=== PATIENT | male | born 1975 | race Caucasian/White ===

== ENCOUNTER 2018-04-19 11:27 | Emergency (ER) | payer OTHER ==
[2018-04-19 11:40] VITALS: RESP 18
[2018-04-19] MEDS ORDERED: LIDOCAINE 1% INJ 10MG/ML (20 ML MDV) SQ STA (12:52)
--- NOTE | 2018-04-19 12:56 | ED ---
Skin/Abscess/FB HPI - General Chief complaint: Skin/Abscess/Foreign Body Stated complaint: abcess on bottom Time Seen by Provider: 04/19/18 12:40 Source: patient, RN notes reviewed, old records reviewed Mode of arrival: ambulatory Limitations: no limitations - History of Present Illness Initial comments: Patient is a 43-year-old male with chief complaint of increased pain and swelling over the right buttocks. Patient reports that he had a small pimple and he is unnecessary for many years. He reports over the past 2 weeks since increase in size. Patient reports that he's had no history of MRSA or skin infection. Patient has no fevers or chills. He reports that occasionally painful to sit down. Patient states that he has had normal bowel movements and normal urination. Patient denies any recent fever, chills, shortness of breath, chest pain, back pain, abdominal pain, nausea vomiting, numbness or tingling, dysuria or hematuria, constipation or diarrhea, headaches or visual changes, or any other current symptoms - Related Data Home Medications Medication Instructions Recorded Confirmed Albuterol Inhaler [Ventolin Hfa 1 - 2 puff INHALATION RT-Q6H PRN 04/19/18 Inhaler] Loratadine-Pseudoeph 5-120 mg 1 each PO DAILY PRN 04/19/18 04/19/18 [Claritin-D 12 HR] Previous Rx's Medication Instructions Recorded Ibuprofen 600 mg PO TID #20 tablet 04/19/18 Sulfamethox-Tmp 800-160Mg [Bactrim 2 tab PO Q12HR #40 tab 04/19/18 DS 800-160 mg] Allergies Allergy/AdvReac Type Severity Reaction Status Date / Time divalproex sodium Allergy Unknown Verified 04/19/18 11:40 [From Depakote] imipramine Allergy Unknown Verified 04/19/18 11:40 lamotrigine [From Lamictal] Allergy Unknown Verified 04/19/18 11:40 peanut Allergy Unknown Verified 04/19/18 11:40 Review of Systems ROS Statement: Those systems with pertinent positive or pertinent negative responses have been documented in the HPI. ROS Other: All systems not noted in ROS Statement are negative. Past Medical History Additional Past Medical History / Comment(s): chronic back pain, rt shoulder pain History of Any Multi-Drug Resistant Organisms: None Reported Past Surgical History: Appendectomy Additional Past Surgical History / Comment(s): back surgery Past Psychological History: ADD/ADHD, Bipolar, Schizophrenia Smoking Status: Current every day smoker Past Alcohol Use History: Rare Past Drug Use History: Marijuana General Exam - General Exam Comments Initial Comments: This patient's a 43-year-old male. Alert and oriented. No acute distress. Limitations: no limitations General appearance: alert, in no apparent distress Head exam: Present: atraumatic, normocephalic, normal inspection Eye exam: Present: normal appearance, PERRL, EOMI. Absent: scleral icterus, conjunctival injection, periorbital swelling ENT exam: Present: normal exam, mucous membranes moist Neck exam: Present: normal inspection. Absent: tenderness, meningismus, lymphadenopathy Respiratory exam: Present: normal lung sounds bilaterally. Absent: respiratory distress, wheezes, rales, rhonchi, stridor Cardiovascular Exam: Present: regular rate, normal rhythm, normal heart sounds. Absent: systolic murmur, diastolic murmur, rubs, gallop, clicks GI/Abdominal exam: Present: soft, normal bowel sounds. Absent: distended, tenderness, guarding, rebound, rigid Rectal exam: Present: normal inspection, normal rectal tone Extremities exam: Present: normal inspection, full ROM, normal capillary refill. Absent: tenderness, pedal edema, joint swelling, calf tenderness Back exam: Present: normal inspection Neurological exam: Present: alert, oriented X3, CN II-XII intact, normal gait Psychiatric exam: Present: normal affect, normal mood Skin exam: Present: warm, dry, intact, normal color, erythema (4cm area of erythema over rght buttock). Absent: rash Course Vital Signs 04/19/18 11:36 Temperature 97.9 F Pulse Rate 73 Respiratory 18 Rate Blood Pressure 133/91 O2 Sat by Pulse 98 Oximetry Procedures - Incision & Drainage Time Out Performed?: Yes Site: buttock (Right) Size (cm): 6 Anesthetic Used: lidocaine 1% Amount (mLs): 5 I&D Cleaning Method: Iodine Sterile Field Used?: Yes Scalpel Used: #11 I&D Drainage Obtained: Pus, Blood Packing: Iodoform Culture Obtained?: Yes Patient Tolerated Procedure: well, no complications Medical Decision Making - Medical Decision Making 43-year-old male presents return today chief complaint of an abscess over his right buttock. Worse over the past 2 weeks. No fevers or chills. Abscess was not near the rectum. Ultrasound was performed and shows a 6 cm fluctuant nonvascular area. I did incise and drain the abscess at this time. Culture obtained. Majority of the material expressed was pustular as well as some blood. Packing was placed in the area. I discussed he has a follow-up with PCP for repacking in 2 days. We'll start the Patient on Bactrim. Patient given starter pack in the emergency department. - Radiology Data Radiology results: report reviewed Disposition Clinical Impression: Abscess of buttock, right Disposition: HOME SELF-CARE Condition: Good Instructions: Abscess Incision and Drainage (ED) Additional Instructions: Follow-up with primary care physician for packing removal in 2 days. Patient should complete the antibiotic prescription. Return to the emergency department if any alarming signs or symptoms occur. Prescriptions: Ibuprofen 600 mg PO TID #20 tablet Sulfamethox-Tmp 800-160Mg [Bactrim DS 800-160 mg] 2 tab PO Q12HR #40 tab Is patient prescribed a controlled substance at d/c from ED?: No Referrals: Karli Nielsen MD [Primary Care Provider] - 1-2 days Time of Disposition: 13:42
[2018-04-19] MEDS ORDERED: SULFAMETH-TMP DS STARTER PACK 2 TAB BTL PO STA (13:44)
[2018-04-19 13:54] VITALS: BP 143/97; PULSE 68; TEMP 98.6
== END 2018-04-19 13:54 | disposition home or self-care (01) ==
LOC: EC 11:27
DX: L02.31 Cutaneous abscess of buttock (principal); F17.200 Nicotine dependence, unspecified, uncomplicated; Z88.8 Allergy status to other drugs, medicaments and biological substances; Z91.010 Allergy to peanuts
CPT/HCPCS: 87070; 87205; 99284; 10061; J2001

== ENCOUNTER 2018-04-22 11:03 | Emergency (ER) | payer OTHER ==
[2018-04-22 11:10] VITALS: TEMP 97.4
--- NOTE | 2018-04-22 12:17 | ED ---
Skin/Abscess/FB HPI - General Chief complaint: Skin/Abscess/Foreign Body Stated complaint: PACKING REMOVAL RT BUTTOCKS Time Seen by Provider: 04/22/18 11:35 Source: patient Mode of arrival: ambulatory Limitations: no limitations - History of Present Illness Initial comments: 33 years old male comes in here for follow-up on his home wound on his right buttocks, he had I&D few days ago he had the wound packed and he is here for the removal of the package and is also has some purulent drainage from there he denies any fever no chills review of system is unremarkable otherwise. He is on Bactrim right now twice today and he has about a days worth the supply at this point - Related Data Home Medications Medication Instructions Recorded Confirmed Albuterol Inhaler [Ventolin Hfa 1 - 2 puff INHALATION RT-Q6H PRN 04/19/18 Inhaler] Loratadine-Pseudoeph 5-120 mg 1 tab PO DAILY PRN 04/19/18 04/22/18 [Claritin-D 12 HR] Previous Rx's Medication Instructions Recorded Ibuprofen 600 mg PO TID #20 tablet 04/19/18 Sulfamethox-Tmp 800-160Mg [Bactrim 2 tab PO Q12HR #40 tab 04/19/18 DS 800-160 mg] Allergies Allergy/AdvReac Type Severity Reaction Status Date / Time divalproex sodium Allergy Unknown Verified 04/22/18 11:41 [From Depakote] imipramine Allergy Unknown Verified 04/22/18 11:41 lamotrigine [From Lamictal] Allergy Unknown Verified 04/22/18 11:41 peanut Allergy Unknown Verified 04/22/18 11:41 OPIATES AdvReac Nausea & Uncoded 04/22/18 11:41 Vomiting Review of Systems ROS Statement: Those systems with pertinent positive or pertinent negative responses have been documented in the HPI. ROS Other: All systems not noted in ROS Statement are negative. Past Medical History Additional Past Medical History / Comment(s): chronic back pain, rt shoulder pain History of Any Multi-Drug Resistant Organisms: None Reported Past Surgical History: Appendectomy Additional Past Surgical History / Comment(s): back surgery Past Psychological History: ADD/ADHD, Bipolar, Schizophrenia Smoking Status: Current every day smoker Past Alcohol Use History: Rare Past Drug Use History: Marijuana General Exam - General Exam Comments Initial Comments: General: The patient is awake and alert, in no distress, and does not appear acutely ill. Skin: Skin is warm and dry and no rashes or lesions are noted. Noticed a wound which is packed on the right buttocks opening is about to 4 mm in size packing was pulled out wound was cleaned noticed a small amount of firm prostate that was cultured him area noticed some induration underneath that I no obvious cellulitis noticed affecting the surrounding area Eye: Pupils are equal, round and reactive to light, extra-ocular movements are intact; there is normal conjunctiva bilaterally. Ears, nose, mouth and throat: There are moist mucous membranes and no oral lesions. Neck: The neck is supple, there is no tenderness or JVD. Cardiovascular: There is a regular rate and rhythm. No murmur, rub or gallop is appreciated. Respiratory: To auscultation bilateral, no wheezing no rhonchi no distress respiratory wagner noticed Gastrointestinal: Soft, non-distended, non-tender abdomen without masses or organomegaly noted. There is no rebound or guarding present. Bowel sounds are unremarkable. Back: There is no tenderness to palpation in the midline. There is no obvious deformity. Musculoskeletal: Normal ROM, no tenderness, There is no pedal edema. There is no calf tenderness or swelling. No cords were appreciated. Neurological: CN II-XII intact, Cranial nerves III through XII are intact. There are no obvious motor or sensory deficits. Coordination appears grossly intact. Speech is normal. Psychiatric: Cooperative, appropriate mood & affect, normal judgment. Limitations: no limitations Course Vital Signs 04/22/18 11:06 Temperature 97.4 F L Pulse Rate 69 Respiratory 18 Rate Blood Pressure 137/84 O2 Sat by Pulse 96 Oximetry Centering the small amount of drainage and I repeated the culture with aerobic and anaerobic noticed mild odor to the drainage or discharge the patient will continue the Bactrim until the culture reports come back Disposition Clinical Impression: Abscess Disposition: HOME SELF-CARE Condition: Good Instructions: Abscess (ED) Is patient prescribed a controlled substance at d/c from ED?: No Referrals: Karli Nielsen MD [Primary Care Provider] - 1-2 days
[2018-04-22 12:34] VITALS: BP 130/80; PULSE 72; RESP 16
== END 2018-04-22 12:34 | disposition home or self-care (01) ==
LOC: EC 11:03
DX: L02.31 Cutaneous abscess of buttock (principal); F17.200 Nicotine dependence, unspecified, uncomplicated; Z91.010 Allergy to peanuts; Z88.8 Allergy status to other drugs, medicaments and biological substances; Z88.5 Allergy status to narcotic agent
CPT/HCPCS: 87070; 87075; 87205; 99283

== ENCOUNTER 2018-12-08 18:48 | Emergency (ER) | payer OTHER ==
[2018-12-08 19:25] VITALS: RESP 18; TEMP 98.5
[2018-12-08 21:19] VITALS: BP 164/90; PULSE 84
--- NOTE | 2018-12-08 21:22 | ED ---
General Adult HPI - General Chief complaint: Extremity Injury, Lower Stated complaint: Leg pain Time Seen by Provider: 12/08/18 20:06 Source: patient, RN notes reviewed Mode of arrival: wheelchair Limitations: no limitations - History of Present Illness Initial comments: 43-year-old male presents to the emergency department for chief complete of right calf pain. This has been ongoing for the past several hours. Patient states that he was starting to run across the street when he felt a pop in his right calf. He states that since that time he has had pain especially with dorsiflexion of the right foot. Denies any falls or other injuries.Patient has no other complaints at this time including shortness of breath, chest pain, abdominal pain, nausea or vomiting, headache, or visual changes. - Related Data Home Medications Medication Instructions Recorded Confirmed Albuterol Inhaler [Ventolin Hfa 1 - 2 puff INHALATION RT-Q6H PRN 04/19/18 04/22/18 Inhaler] Loratadine-Pseudoeph 5-120 mg 1 tab PO DAILY PRN 04/19/18 04/22/18 [Claritin-D 12 HR] Previous Rx's Medication Instructions Recorded Ibuprofen 600 mg PO TID #20 tablet 04/19/18 Sulfamethox-Tmp 800-160Mg [Bactrim 2 tab PO Q12HR #40 tab 04/19/18 DS 800-160 mg] Ibuprofen [Motrin] 600 mg PO Q8HR PRN #20 tab 12/08/18 Allergies Allergy/AdvReac Type Severity Reaction Status Date / Time divalproex sodium Allergy Unknown Verified 04/22/18 11:41 [From Depakote] imipramine Allergy Unknown Verified 04/22/18 11:41 lamotrigine [From Lamictal] Allergy Unknown Verified 04/22/18 11:41 peanut Allergy Unknown Verified 04/22/18 11:41 OPIATES AdvReac Nausea & Uncoded 04/22/18 11:41 Vomiting Review of Systems ROS Statement: Those systems with pertinent positive or pertinent negative responses have been documented in the HPI. ROS Other: All systems not noted in ROS Statement are negative. Past Medical History Past Medical History: Asthma Additional Past Medical History / Comment(s): chronic back pain, rt shoulder pain History of Any Multi-Drug Resistant Organisms: None Reported Past Surgical History: Appendectomy Additional Past Surgical History / Comment(s): back surgery Past Psychological History: ADD/ADHD, Bipolar Smoking Status: Current every day smoker Past Alcohol Use History: None Reported Past Drug Use History: Marijuana General Exam Limitations: no limitations General appearance: alert, in no apparent distress Head exam: Present: atraumatic, normocephalic, normal inspection Eye exam: Present: normal appearance, PERRL, EOMI. Absent: scleral icterus, conjunctival injection, periorbital swelling ENT exam: Present: normal exam, mucous membranes moist Neck exam: Present: normal inspection, full ROM. Absent: tenderness, meningismus, lymphadenopathy Respiratory exam: Present: normal lung sounds bilaterally. Absent: respiratory distress, wheezes, rales, rhonchi, stridor Cardiovascular Exam: Present: regular rate, normal rhythm, normal heart sounds. Absent: systolic murmur, diastolic murmur, rubs, gallop, clicks Extremities exam: Present: tenderness (Tenderness noted throughout the right calf), normal capillary refill (Capillary refill less than 2 seconds, DP pulse 2+ the right lower extremity), calf tenderness ( does have Tenderness in the right calf, no erythema or edema present. No increased circumference when compared to the left calf.), other (Sensation intact in the right lower extremity. Morton sign is normal.). Absent: full ROM (Patient has full range motion of the right knee. He has full plantar flexion of the right foot limited dorsiflexion due to pain) Neurological exam: Present: alert, oriented X3, CN II-XII intact Psychiatric exam: Present: normal affect, normal mood Course Vital Signs 12/08/18 12/08/18 19:20 21:17 Temperature 98.5 F Pulse Rate 78 84 Respiratory 18 18 Rate Blood Pressure 133/85 164/90 O2 Sat by Pulse 96 96 Oximetry - Reevaluation(s) Reevaluation #1: 12/08/18 23:01 Patient was offered pain medications twice and refused. States he is ALLERGIC to all opiates and does not want Motrin at this time. Procedures - Orthopedic Splinting/Casting Injury #1 Side: right Lower Extremity Injury Location: short leg Lower Extremity Immobilizer: posterior splint Other Orthopedic Equipment: crutches Medical Decision Making - Medical Decision Making 43-year-old male presents to the emergency department for chief pain of right calf pain after running across the street. States he felt a pop in his had pain ever since. Full plantar flexion with limited dorsiflexion. Patient does have tenderness in his calf. Neurovascular is intact. Patient is able to ambulate. Clinically patient has a gastrocnemius injury. Patient was placed in a splint and will follow up with orthopedics Disposition Clinical Impression: Gastrocnemius strain Disposition: HOME SELF-CARE Condition: Good Instructions (If sedation given, give patient instructions): Tendon Rupture (ED) Additional Instructions: Please take Motrin and Tylenol for pain. Keep splint in place. Please follow- up with orthopedics in one to 2 days. Please return here to the emergency department if you have any worsening symptoms. Prescriptions: Ibuprofen [Motrin] 600 mg PO Q8HR PRN #20 tab PRN Reason: Pain Is patient prescribed a controlled substance at d/c from ED?: No Referrals: Karli Nielsen MD [Primary Care Provider] - 1-2 days Jones Vasquez MD [STAFF PHYSICIAN] - 1-2 days Time of Disposition: 21:20
== END 2018-12-08 21:25 | disposition home or self-care (01) ==
LOC: EC 18:48
DX: S86.111A Strain of other muscle(s) and tendon(s) of posterior muscle group at lower leg level, right leg, initial encounter (principal); J45.909 Unspecified asthma, uncomplicated; F17.200 Nicotine dependence, unspecified, uncomplicated; Z90.49 Acquired absence of other specified parts of digestive tract; Z98.890 Other specified postprocedural states; Z88.5 Allergy status to narcotic agent; Z88.8 Allergy status to other drugs, medicaments and biological substances; Z91.010 Allergy to peanuts; X50.9XXA Other and unspecified overexertion or strenuous movements or postures, initial encounter; Y92.410 Unspecified street and highway as the place of occurrence of the external cause; Y93.01 Activity, walking, marching and hiking
CPT/HCPCS: 29515; 99283

== ENCOUNTER 2019-10-12 08:07 | Emergency (ER) | payer OTHER ==
[2019-10-12 08:11] VITALS: TEMP 98.1
[2019-10-12 08:25] VITALS: RESP 16
[2019-10-12] MEDS ORDERED: methylPREDNISolone SOD SUCCI 125 MG/2 ML VIAL IM ONE (08:31)
[2019-10-12] MEDS ORDERED: IPRATROPIUM-ALBUTEROL 3 ML NEB INHALATION STA (08:33)
--- NOTE | 2019-10-12 09:19 | ED ---
URI HPI - General Chief Complaint: Upper Respiratory Infection Stated Complaint: SOB/sinuses Time Seen by Provider: 10/12/19 08:12 Source: patient, family Mode of arrival: ambulatory Limitations: no limitations - History of Present Illness Initial Comments: 44-year-old male presenting today for chief complaint of congestion and cough for the past 1-2 days. Patient states has had congestion and cough for the past few days. Patient states he has history of asthma denies any previous ICU admissions or intubations. Patient is current every day smoker. Patient denies chest pain he states has SOB when he has a coughing spell, admits to slight wheeze. Denies LE swelling. Patient denies any arm pain and jaw pain back pain. Patient denies any known fevers ear pain or sore throat. Patient has no other complaints upon arrival patient appears well no signs of acute distress. - Related Data Previous Rx's Medication Instructions Recorded Albuterol Inhaler [Ventolin Hfa 1 - 2 puff INHALATION RT-Q6H PRN 7 10/12/19 Inhaler] Days #1 inhaler Azithromycin [Zithromax Z-pack] 0 mg PO DIRECTED #6 tab 10/12/19 predniSONE 50 mg PO DAILY 4 Days #4 tab 10/12/19 Allergies Allergy/AdvReac Type Severity Reaction Status Date / Time divalproex sodium Allergy Unknown Verified 10/12/19 08:50 [From Depakote] imipramine Allergy Unknown Verified 10/12/19 08:50 lamotrigine [From Lamictal] Allergy Unknown Verified 10/12/19 08:50 peanut Allergy Unknown Verified 10/12/19 08:50 OPIATES AdvReac Nausea & Uncoded 04/22/18 11:41 Vomiting Review of Systems ROS Statement: Those systems with pertinent positive or pertinent negative responses have been documented in the HPI. ROS Other: All systems not noted in ROS Statement are negative. Past Medical History Past Medical History: Asthma Additional Past Medical History / Comment(s): chronic back pain, rt shoulder pain History of Any Multi-Drug Resistant Organisms: None Reported Past Surgical History: Appendectomy Additional Past Surgical History / Comment(s): back surgery Past Psychological History: ADD/ADHD, Bipolar Smoking Status: Current every day smoker Past Alcohol Use History: None Reported Past Drug Use History: Marijuana General Exam - General Exam Comments Initial Comments: General: The patient is awake and alert, in no distress Eye: +3 mm pupils are equal, round and reactive to light, extra-ocular movements are intact. No nystagmus. There is normal conjunctiva bilaterally. No signs of icterus. No photophobia Ears, nose, mouth and throat: There are moist mucous membranes and no oral lesions. Oropharynx was not erythematous there is no tonsillar enlargement exudates or lesions. Uvula midline. Tympanic membranes are not erythematous or is no effusions bulging or retraction. No tenderness to palpation of the mastoid. No anterior cervical lymphadenopathy. Rhinorrhea, clear and bilateral nares. No tripoding, no drooling. Neck: The neck is supple, there is no tenderness or JVD. No nuchal rigidity Cardiovascular: There is a regular rate and rhythm. No murmur, rub or gallop is appreciated. Respiratory: Slight diminishment of lung sounds. Respirations are non-labored, breath sounds are equal. Mild expiratory wheeze, no stridor, rales, or rhonchi. No retractions or abdominal breathing. Gastrointestinal: Soft, non-distended, non-tender abdomen without masses or organomegaly noted. There is no rebound or guarding present. Bowel sounds are unremarkable. Musculoskeletal: Normal ROM, no tenderness. Strength 5/5. Sensation intact. Radial pulses equal bilaterally 2+. Neurological: A&O x 3. CN II-XII intact grossly, There are no obvious motor or sensory deficits. Coordination appears grossly intact. Speech appears normal, no muffling. Skin: Skin is warm and dry and no rashes or lesions are noted. No extremity edema Psychiatric: Cooperative Limitations: no limitations Course Vital Signs 10/12/19 10/12/19 10/12/19 08:08 08:21 09:08 Temperature 98.1 F Pulse Rate 71 76 Respiratory 18 16 Rate Blood Pressure 153/91 O2 Sat by Pulse 98 Oximetry 10/12/19 10/12/19 09:15 10:22 Temperature Pulse Rate 72 76 Respiratory 16 Rate Blood Pressure 132/76 O2 Sat by Pulse 99 Oximetry Medical Decision Making - Medical Decision Making 44yo male presenting for cough congestion. Obvious URI symptoms. No CP. SOB with cough. No pleuritic CP or not this is. Patient had improvement of lung sounds wiht one duoneb, patient given steroids. Patient requesting discharge. Chest x-ray revealed no focal infiltrates. Patient appears well nontoxic with obvious upper respiratory symptoms I felt this time is stable for discharge with outpatient steroid and antibiotic. Patient is agreeable to this care plan and discharge at this time. Discussed case with Dr. Salas who was agreeable to care plan and discharge. - Lab Data Lab Results 10/12/19 Range/Units 08:20 Influenza Type A RNA Not Detected (Not Detectd) Influenza Type B (PCR) Not Detected (Not Detectd) Disposition Clinical Impression: Cough, Congestion of nasal sinus, Sinus pressure Disposition: HOME SELF-CARE Condition: Good Instructions (If sedation given, give patient instructions): Upper Respiratory Infection (ED) Additional Instructions: Please use medication as discussed. Please follow-up with family doctor in the next 2 days. Please return to emergency room if the symptoms increase or worsen or for any other concerns. Prescriptions: predniSONE 50 mg PO DAILY 4 Days #4 tab Albuterol Inhaler [Ventolin Hfa Inhaler] 1 - 2 puff INHALATION RT-Q6H PRN 7 Days #1 inhaler PRN Reason: Wheezing Azithromycin [Zithromax Z-pack] 0 mg PO DIRECTED #6 tab Is patient prescribed a controlled substance at d/c from ED?: No Referrals: Karli Nielsen MD [Primary Care Provider] - 1-2 days Time of Disposition: 09:56
--- NOTE | 2019-10-12 09:35 | XR ---
EXAMINATION TYPE: XR chest 2V DATE OF EXAM: 10/12/2019 COMPARISON: 08/05/2011 HISTORY: Shortness of breath and congestion TECHNIQUE: Frontal and lateral views of the chest are obtained. FINDINGS: There is no focal air space opacity, pleural effusion, or pneumothorax seen. The cardiac silhouette size is within normal limits. The osseous structures are intact. IMPRESSION: No acute cardiopulmonary process.
[2019-10-12 10:23] VITALS: BP 132/76; PULSE 76
== END 2019-10-12 10:21 | disposition home or self-care (01) ==
LOC: EC 08:07
DX: R05 Cough (principal); R09.81 Nasal congestion; J34.89 Other specified disorders of nose and nasal sinuses; R06.02 Shortness of breath; R06.2 Wheezing; F17.200 Nicotine dependence, unspecified, uncomplicated; Z88.5 Allergy status to narcotic agent; Z88.8 Allergy status to other drugs, medicaments and biological substances; Z91.010 Allergy to peanuts; Z87.09 Personal history of other diseases of the respiratory system
CPT/HCPCS: 94640; 87502; 71046; 99285; 96372; J2930

== ENCOUNTER → 2024-03-22 | Outpatient (CLI) | payer OTHER ==
--- NOTE | 2024-03-22 16:47 | XR ---
EXAMINATION TYPE: XR shoulder limited RT DATE OF EXAM: 03/22/2024 CLINICAL HISTORY: pain TECHNIQUE: Three views of the right shoulder are obtained. COMPARISON: None FINDINGS: There is no acute fracture/dislocation evident. The acromioclavicular and glenohumeral dilia int spaces appear within normal limits. The visualized ribs are intact and unremarkable. IMPRESSION: 1. There is no acute fracture or dislocation. ICD 10 NO FRACTURE, INITIAL EVALUATION
== END | disposition home or self-care (01) ==
LOC: RADXRMAIN 16:11
PROVIDERS: ATTEND Family Medicine
DX: M25.511 Pain in right shoulder (principal)